=== PATIENT | female | born 1995 | race Caucasian/White ===

== ENCOUNTER 2017-05-24 10:20 | Emergency (ER) | payer OTHER, MEDICAID ==
[~2017-05-24] VITALS: Ht 167.6 cm; Wt 90.7 kg
[~2017-05-24 10:20] MED LIST: ACETAMINOPHEN-1 EAC1 PO; ACYCLOVIR 400400 MG PO; ADIPEX-P37.5 MG PO; ALBUTEROL2.5 MG/0.5; ALERTNESS AID200 MG PO; AMOXICILLIN 50500 M1; AMOXICILLIN500 M1 PO; AMOXICILLIN875 MG PO; BACTRIM DS TAB1 EACH PO; BIRTH CONTROL; CATAFLAM50 MG PO; CIPROFLOXACIN500 M1 PO; DIFLUCAN150 MG PO; HYDROCODON-ACE1 EAC7 PO; HYDROCODONE-AP1 EAC6 PO; IBUPROFEN 600600 M1 PO; IBUPROFEN 800800 M1 PO; IBUPROFEN 800800 MG PO; LIDOCAINE VISC100 M1 MM; MACROBID 100 M100 M1 PO; NAPROSYN500 MG PO; NOHOMEMEDICATIONS; NORCO 5-325 TA1 EACH PO; ORABASE11.9 GM MM; PENICILLIN V P500 MG PO; PENICILLIN VK250 MG PO; PENICILLIN VK500 M1 PO; PERCOCET 5-3251 EACH PO; PHENAZOPYRIDIN200 M2 PO; PRENATAL; PROPRANOLOL 1010 MG PO; PYRIDIUM200 MG PO; TAMIFLU45 MG PO; TRAMADOL 50 MG50 MG PO; TRINATE TABLET1 TAB; ULTRACET TABLE1 EACH PO; ULTRAM 50MG TAB50 MG PO; ZANTAC 150MG T150 M1; ZOFRAN ODT4 MG PO; ZOFRAN4 MG PO
[2017-05-24] MEDS ORDERED: MEDROLDOSEPACK PO (12:09)
[2017-05-24 12:23] VITALS: BP 118/72
== END 2017-05-24 12:23 | disposition home or self-care (01) ==
LOC: M.ERS 10:20
DX: M79.672 Pain in left foot (principal); J45.909 Unspecified asthma, uncomplicated; F41.9 Anxiety disorder, unspecified; F17.210 Nicotine dependence, cigarettes, uncomplicated; Z86.14 Personal history of Methicillin resistant Staphylococcus aureus infection; Z90.89 Acquired absence of other organs

== ENCOUNTER 2017-06-27 10:19 | Emergency (ER) | payer OTHER, MEDICAID ==
[~2017-06-27] VITALS: Ht 167.6 cm; Wt 99.8 kg
[~2017-06-27 10:19] MED LIST changes: +MEDROLDOSEPACK PO
[2017-06-27 10:30] VITALS: BP 128/72
[2017-06-27] MEDS ORDERED: TRAMADOL 50 MG50 MG PO (10:45)
[2017-06-27] MEDS ORDERED: NAPROSYN500 MG PO (10:45)
[2017-06-27] MEDS ORDERED: PENICILLIN V P500 MG PO (10:45)
== END 2017-06-27 10:50 | disposition home or self-care (01) ==
LOC: M.ERS 10:19
DX: K08.89 Other specified disorders of teeth and supporting structures (principal); J45.909 Unspecified asthma, uncomplicated; F17.210 Nicotine dependence, cigarettes, uncomplicated; Z86.14 Personal history of Methicillin resistant Staphylococcus aureus infection

== ENCOUNTER 2017-06-29 17:38 | Emergency (ER) | payer OTHER, MEDICAID ==
[~2017-06-29] VITALS: Ht 167.6 cm; Wt 113.4 kg
[2017-06-29] MEDS ORDERED: TRAMADOL 50 MG50 MG PO (17:50)
[2017-06-29 18:01] LABS: ABSOLUTE BASOPHILS 0.1 thou/uL (0.0-0.2); ABSOLUTE EOSINOPHILS 0.1 thou/uL (0.0-0.7); ABSOLUTE LYMPHOCYTES 2.4 thou/uL (0.8-5.3); ABSOLUTE MONOCYTES 0.4 thou/uL (0.0-1.2); ABSOLUTE NEUTROPHILS 2.9 thou/uL (1.6-8.1); BASOPHILS 1.3 %; EOSINOPHILS 1.3 %; HEMATOCRIT 43.4 % (37.0-47.0); HEMOGLOBIN 14.9 gm/dL (12.0-15.0); MCHC 34.3 g/dL (28.0-37.0); MCV 87.5 fL (80.0-100.0); MONOCYTES 6.3 %; MPV 7.7 fl. (7.2-11.1); NUCLEATED RBCS 0 /100WBC; PLATELET COUNT* 242 thou/uL (150-400); POLYS 50.1 %; RBC 4.96 mil/uL (4.20-5.00); RDW-CV 12.5 % (10.5-14.5); WBC 5.9 thou/uL (4.0-11.0)
[2017-06-29 18:09] LABS: CALCIUM 9.4 mg/dL (8.5-10.1); CREATININE 0.8 mg/dL (0.6-1.3); POTASSIUM 3.4 mmol/L (3.5-5.1)
[2017-06-29 18:10] LABS: APTT 29.2 Seconds (25.0-31.3); INR 1.1; PROTIME 10.8 Seconds (9.20-11.50)
[2017-06-29 18:13] LABS: ALBUMIN 4.2 g/dL (3.4-5.0); TOTAL BILIRUBIN 0.5 mg/dL (<0.1-1.0); TOTAL PROTEIN 7.2 g/dL (6.4-8.2)
[2017-06-29 18:14] LABS: ALCOHOL < 10 mg/dL (<10); SALICYLATE < 2.8 mg/dL (2.8-20.0)
[2017-06-29 18:15] LABS: ACETAMINOPHEN < 2 ug/mL (10-30)
[2017-06-29 18:27] LABS: URINE BILIRUBIN NEGATIVE (Negative); URINE BLOOD NEGATIVE (Negative); URINE CLARITY CLEAR; URINE COLOR YELLOW; URINE GLUCOSE-RANDOM NEGATIVE (Negative); URINE KETONES TRACE (Negative); URINE LEUKOCYTES-REFLEX NEGATIVE (Negative); URINE NITRITE-REFLEX NEGATIVE (Negative); URINE PROTEIN NEGATIVE (Negative); URINE UROBILINOGEN 0.2 E.U./dl (0.2-1.0)
[2017-06-29] MEDS ORDERED: XANAX 1 MG TABLE1 MG PO (18:32)
[2017-06-29 18:35] LABS: AMP/METHAMP Negative (Negative); BARBITURATES Negative (Negative); BENZODIAZEPINES Negative (Negative); COCAINE Negative (Negative); METHADONE Negative (Negative); OPIATES Negative (Negative); PCP Negative (Negative); THC Negative (Negative)
[2017-06-29 18:58] VITALS: BP 114/64
--- NOTE | 2017-06-30 14:37 | EKG ---
[place] [address] ELECTROCARDIOGRAM REPORT Name: KATIE TRIPLETT Room: [facility]#: [id number] Admission: 06/29/17 Attend Phys: Discharge: 06/29/17 Date of : [birth year] Report #: [id number] THIS REPORT FOR: //name// [facility] ED Test Date: 2017-06-29 Test Time: 18:32:37 Pat Name: KATIE TRIPLETT Department: Room: Gender: F Scheduling Assistant: CYNTHIA Liz : 1995 Requested By: Sixto Rivas Order Number: [id number] MD: Lebron Titus Measurements Intervals [place] Rate: 75 P: 50 [place]: 165 QRS: 43 QRSD: 96 T: 37 QT: 380 QTc: 425 Interpretive Statements Sinus rhythm Compared to ECG 11/06/2014 20:07:13 No significant changes Electronically Signed On 06-30-2017 14:36:59 CDT by Lebron Titus [email or web address] <ELECTRONICALLY SIGNED> By: Lebron Titus MD, [facility] 06/30/17 1436 1832 1832 Lebron Titus MD, FACC /EPI
== END 2017-06-29 19:02 | disposition home or self-care (01) ==
LOC: M.ERS 17:38
PROVIDERS: Family Medicine
DX: F41.0 Panic disorder [episodic paroxysmal anxiety] (principal); T40.4X1A Poisoning by other synthetic narcotics, accidental (unintentional), initial encounter; J45.909 Unspecified asthma, uncomplicated; F17.210 Nicotine dependence, cigarettes, uncomplicated; Z90.89 Acquired absence of other organs; Z86.14 Personal history of Methicillin resistant Staphylococcus aureus infection; Y92.89 Other specified places as the place of occurrence of the external cause

== ENCOUNTER 2017-08-02 21:02 | Emergency (ER) | payer OTHER, MEDICAID ==
[~2017-08-02] VITALS: Ht 167.6 cm; Wt 127.0 kg
[~2017-08-02 21:02] MED LIST changes: +XANAX 1 MG TABLE1 MG PO
[2017-08-02] MEDS ORDERED: HYDROXYZINE HCL25 M2 PO (21:10)
[2017-08-02 21:21] LABS: URINE BILIRUBIN NEGATIVE (Negative); URINE BLOOD 3+ (Negative); URINE CLARITY CLEAR; URINE COLOR YELLOW; URINE GLUCOSE-RANDOM NEGATIVE (Negative); URINE KETONES NEGATIVE (Negative); URINE LEUKOCYTES-REFLEX NEGATIVE (Negative); URINE NITRITE-REFLEX NEGATIVE (Negative); URINE PROTEIN NEGATIVE (Negative); URINE SPECIFIC GRAVITY <= 1.005 (1.005-1.030); URINE UROBILINOGEN 0.2 E.U./dl (0.2-1.0)
[2017-08-02 21:27] LABS: BACTERIA-REFLEX >30 Many /HPF (None Seen); CASTS None Seen /LPF (None Seen); CRYSTALS None Seen /LPF (None Seen); MUCUS 0-3 Light strn/LPF (None Seen); SQUAMOUS 0-3 Few /LPF (0-3); TRANSITIONAL EPITHEL CELL 0-3 Few /LPF (None Seen); URINE RBC 3-10 Few /HPF (0-2); URINE WBC-REFLEX 6-15 Few /HPF (0-5)
[2017-08-02 21:36] LABS: ABSOLUTE BASOPHILS 0.1 thou/uL (0.0-0.2); ABSOLUTE EOSINOPHILS 0.1 thou/uL (0.0-0.7); ABSOLUTE LYMPHOCYTES 2.1 thou/uL (0.8-5.3); ABSOLUTE MONOCYTES 0.6 thou/uL (0.0-1.2); ABSOLUTE NEUTROPHILS 4.9 thou/uL (1.6-8.1); BASOPHILS 0.9 %; EOSINOPHILS 1.6 %; HEMATOCRIT 40.7 % (37.0-47.0); HEMOGLOBIN 13.8 gm/dL (12.0-15.0); LYMPHOCYTES 27.3 %; MCH 30.1 pg (26.0-34.0); MCV 88.5 fL (80.0-100.0); MONOCYTES 8.2 %; MPV 7.8 fl. (7.2-11.1); NUCLEATED RBCS 0 /100WBC; PLATELET COUNT* 230 thou/uL (150-400); WBC 7.9 thou/uL (4.0-11.0)
[2017-08-02 21:42] LABS: ANION GAP 9 mmol/L (7-16); BUN 8 mg/dL (7-18); CALCIUM 8.6 mg/dL (8.5-10.1); CHLORIDE 108 mmol/L (98-107); CO2 24 mmol/L (21-32); CREATININE 0.8 mg/dL (0.6-1.3); GLUCOSE 102 mg/dL (70-99); POTASSIUM 3.5 mmol/L (3.5-5.1); SODIUM 141 mmol/L (136-145)
[2017-08-02 21:48] LABS: ALBUMIN 3.6 g/dL (3.4-5.0); ALKALINE PHOSPHATASE 64 U/L (46-116); LIPASE 93 U/L (73-393); SGOT 11 U/L (15-37); SGPT 19 U/L (30-65); TOTAL BILIRUBIN 0.3 mg/dL (<0.1-1.0); TOTAL PROTEIN 6.7 g/dL (6.4-8.2); TROPONIN-I LEVEL <0.06 ng/mL (<0.06)
[2017-08-02] MEDS ORDERED: BACTRIM DS TAB1 EACH PO (23:26)
[2017-08-02] MEDS ORDERED: BENTYL 20 MG TA20 M1 PO (23:26)
[2017-08-02] MEDS ORDERED: PHENERGAN 25 MG25 M1 PO (23:26)
[2017-08-02 23:40] VITALS: BP 130/80
--- NOTE | 2017-08-03 10:59 | EKG ---
[place] [address] ELECTROCARDIOGRAM REPORT Name: KATIE TRIPLETT [id number] Admission: 08/02/17 Attend Phys: Discharge: 08/02/17 Date of : [birth year] Report #: [id number] THIS REPORT FOR: //name// [facility] ED Test Date: 2017-08-02 Test Time: 21:22:56 Pat Name: KATIE TRIPLETT Department: Room: Gender: F Oil Deliverer: CYNTHIA Liz : 1995 Requested By: Senthil Barcenas Order Number: [id number] MD: Lawrence Soto Measurements Intervals [place] Rate: 83 P: 32 [place]: 161 QRS: 36 QRSD: 91 T: 29 QT: 349 QTc: 410 Interpretive Statements Sinus rhythm Compared to ECG 06/29/2017 18:32:37 No significant changes Electronically Signed On 08-03-2017 10:59:06 CDT by Lawrence Soto [email or web address] <ELECTRONICALLY SIGNED> By: Lawrence Soto MD, [facility] 08/03/17 1059 2122 21 Lawrence Soto MD, FACC /EPI
== END 2017-08-02 23:40 | disposition home or self-care (01) ==
LOC: M.ERS 21:02
PROVIDERS: Emergency Medicine Emergency Medical Services
DX: R19.7 Diarrhea, unspecified (principal); F41.9 Anxiety disorder, unspecified; J45.909 Unspecified asthma, uncomplicated; F17.210 Nicotine dependence, cigarettes, uncomplicated; Z86.14 Personal history of Methicillin resistant Staphylococcus aureus infection

== ENCOUNTER 2017-08-04 10:00 | Emergency (ER) | payer OTHER, MEDICAID ==
[~2017-08-04] VITALS: Ht 167.6 cm; Wt 127.0 kg
[~2017-08-04 10:00] MED LIST changes: +BENTYL 20 MG TA20 M1 PO; +HYDROXYZINE HCL25 M2 PO; +PHENERGAN 25 MG25 M1 PO
[2017-08-04 10:26] VITALS: BP 145/76
== END 2017-08-04 10:26 | disposition home or self-care (01) ==
LOC: M.ERS 10:00
DX: F41.0 Panic disorder [episodic paroxysmal anxiety] (principal); J45.909 Unspecified asthma, uncomplicated; F17.210 Nicotine dependence, cigarettes, uncomplicated; Z86.14 Personal history of Methicillin resistant Staphylococcus aureus infection

== ENCOUNTER 2017-08-09 23:51 | Emergency (ER) | payer OTHER, MEDICAID ==
[~2017-08-09] VITALS: Ht 167.6 cm; Wt 129.0 kg
[2017-08-10] MEDS ORDERED: ESCITALOPRAM OX20 MG PO (00:02)
[2017-08-10] MEDS ORDERED: BUSPIRONE HCL10 MG PO (00:02)
[2017-08-10 00:29] LABS: ABSOLUTE BASOPHILS 0.1 thou/uL (0.0-0.2); ABSOLUTE LYMPHOCYTES 2.3 thou/uL (0.8-5.3); ABSOLUTE MONOCYTES 0.7 thou/uL (0.0-1.2); ABSOLUTE NEUTROPHILS 6.7 thou/uL (1.6-8.1); BASOPHILS 1.3 %; EOSINOPHILS 0.4 %; HEMOGLOBIN 14.8 gm/dL (12.0-15.0); LYMPHOCYTES 23.7 %; MCHC 34.5 g/dL (28.0-37.0); MCV 87.2 fL (80.0-100.0); MONOCYTES 7.3 %; MPV 8.1 fl. (7.2-11.1); NUCLEATED RBCS 0 /100WBC; PLATELET COUNT* 258 thou/uL (150-400); POLYS 67.3 %; RBC 4.94 mil/uL (4.20-5.00); RDW-CV 12.9 % (10.5-14.5); WBC 9.9 thou/uL (4.0-11.0)
[2017-08-10 00:35] LABS: CALCIUM 8.7 mg/dL (8.5-10.1); CREATININE 0.7 mg/dL (0.6-1.3); POTASSIUM 3.5 mmol/L (3.5-5.1)
[2017-08-10 00:37] LABS: URINE BILIRUBIN NEGATIVE (Negative); URINE BLOOD NEGATIVE (Negative); URINE CLARITY CLEAR; URINE COLOR YELLOW; URINE GLUCOSE-RANDOM NEGATIVE (Negative); URINE KETONES NEGATIVE (Negative); URINE LEUKOCYTES-REFLEX NEGATIVE (Negative); URINE NITRITE-REFLEX NEGATIVE (Negative); URINE PROTEIN NEGATIVE (Negative); URINE SPECIFIC GRAVITY 1.025 (1.005-1.030); URINE UROBILINOGEN 0.2 E.U./dl (0.2-1.0)
[2017-08-10 00:40] LABS: ALBUMIN 3.9 g/dL (3.4-5.0); TOTAL BILIRUBIN 0.3 mg/dL (<0.1-1.0)
[2017-08-10 00:44] LABS: AMP/METHAMP Negative (Negative); BARBITURATES Negative (Negative); BENZODIAZEPINES POSITIVE (Negative); COCAINE Negative (Negative); METHADONE Negative (Negative); OPIATES Negative (Negative); PCP Negative (Negative); THC Negative (Negative)
[2017-08-10 01:00] VITALS: BP 104/59
== END 2017-08-10 01:02 | disposition home or self-care (01) ==
LOC: M.ERS 23:51
PROVIDERS: Nurse Practitioner Family
DX: F41.0 Panic disorder [episodic paroxysmal anxiety] (principal); J45.909 Unspecified asthma, uncomplicated; F17.210 Nicotine dependence, cigarettes, uncomplicated; Z86.14 Personal history of Methicillin resistant Staphylococcus aureus infection; Z90.89 Acquired absence of other organs

== ENCOUNTER 2017-10-15 12:14 | Emergency (ER) | payer OTHER ==
[~2017-10-15] VITALS: Ht 167.6 cm; Wt 122.5 kg
[~2017-10-15 12:14] MED LIST changes: +BUSPIRONE HCL10 MG PO; +ESCITALOPRAM OX20 MG PO
[2017-10-15 12:21] VITALS: BP 91/67
[2017-10-15] MEDS ORDERED: XANAX 0.5 MG0.5 MG PO (12:24)
[2017-10-15] MEDS ORDERED: IBU600 MG PO (13:06)
== END 2017-10-15 13:15 | disposition home or self-care (01) ==
LOC: M.ERS 12:14
DX: S86.811A Strain of other muscle(s) and tendon(s) at lower leg level, right leg, initial encounter (principal); J45.909 Unspecified asthma, uncomplicated; F41.9 Anxiety disorder, unspecified; F17.210 Nicotine dependence, cigarettes, uncomplicated; Z86.14 Personal history of Methicillin resistant Staphylococcus aureus infection; X58.XXXA Exposure to other specified factors, initial encounter; Y93.89 Activity, other specified; Y92.89 Other specified places as the place of occurrence of the external cause; Y99.8 Other external cause status

== ENCOUNTER 2018-07-09 13:09 | Emergency (ER) | payer OTHER ==
[~2018-07-09] VITALS: Ht 167.6 cm; Wt 90.7 kg
[~2018-07-09 13:09] MED LIST changes: +IBU600 MG PO; +XANAX 0.5 MG0.5 MG PO
[2018-07-09] MEDS ORDERED: BIRTH CONTROL (13:22)
[2018-07-09] MEDS ORDERED: AMOXICILLIN 50500 MG PO (13:45)
[2018-07-09] MEDS ORDERED: IBUPROFEN 800800 M1 PO (13:45)
[2018-07-09 13:52] VITALS: BP 147/78
== END 2018-07-09 13:52 | disposition home or self-care (01) ==
LOC: M.ERS 13:09
DX: K02.9 Dental caries, unspecified (principal); K12.2 Cellulitis and abscess of mouth; J45.909 Unspecified asthma, uncomplicated; F41.9 Anxiety disorder, unspecified; F17.210 Nicotine dependence, cigarettes, uncomplicated

== ENCOUNTER 2018-09-13 13:21 | Emergency (ER) | payer OTHER ==
[~2018-09-13] VITALS: Ht 170.2 cm; Wt 81.7 kg
[~2018-09-13 13:21] MED LIST changes: +AMOXICILLIN 50500 MG PO
[2018-09-13 13:48] LABS: URINE BILIRUBIN NEGATIVE (Negative); URINE BLOOD NEGATIVE (Negative); URINE CLARITY CLEAR; URINE COLOR YELLOW; URINE GLUCOSE-RANDOM NEGATIVE (Negative); URINE KETONES NEGATIVE (Negative); URINE LEUKOCYTES-REFLEX NEGATIVE (Negative); URINE NITRITE-REFLEX NEGATIVE (Negative); URINE PROTEIN NEGATIVE (Negative); URINE UROBILINOGEN 0.2 E.U./dl (0.2-1.0)
[2018-09-13 14:11] LABS: AMP/METHAMP Negative (Negative); BARBITURATES Negative (Negative); BENZODIAZEPINES Negative (Negative); COCAINE Negative (Negative); METHADONE Negative (Negative); OPIATES Negative (Negative); PCP Negative (Negative); THC Negative (Negative)
[2018-09-13 14:22] LABS: ABSOLUTE BASOPHILS 0.1 thou/uL (0.0-0.2); ABSOLUTE EOSINOPHILS 0.1 thou/uL (0.0-0.7); ABSOLUTE LYMPHOCYTES 2.1 thou/uL (0.8-5.3); ABSOLUTE MONOCYTES 0.6 thou/uL (0.0-1.2); ABSOLUTE NEUTROPHILS 5.9 thou/uL (1.6-8.1); BASOPHILS 0.7 %; EOSINOPHILS 0.7 %; HEMATOCRIT 42.9 % (37.0-47.0); HEMOGLOBIN 14.6 gm/dL (12.0-15.0); LYMPHOCYTES 24.4 %; MCV 88.3 fL (80.0-100.0); MONOCYTES 6.7 %; NUCLEATED RBCS 0 /100WBC; PLATELET COUNT* 223 thou/uL (150-400); POLYS 67.5 %; RBC 4.86 mil/uL (4.20-5.00); WBC 8.8 thou/uL (4.0-11.0)
[2018-09-13 14:37] LABS: CALCIUM 8.4 mg/dL (8.5-10.1); CREATININE 0.6 mg/dL (0.6-1.3); POTASSIUM 4.1 mmol/L (3.5-5.1)
[2018-09-13 14:41] LABS: TOTAL BILIRUBIN 0.2 mg/dL (<0.1-1.0); TOTAL PROTEIN 6.3 g/dL (6.4-8.2)
[2018-09-13] MEDS ORDERED: ONDANSETRON HCL4 M2 PO (15:44)
[2018-09-13 16:08] VITALS: BP 120/70
== END 2018-09-13 16:10 | disposition home or self-care (01) ==
LOC: M.ERS 13:21
PROVIDERS: Nurse Practitioner Family
DX: R11.2 Nausea with vomiting, unspecified (principal); F17.210 Nicotine dependence, cigarettes, uncomplicated; F41.9 Anxiety disorder, unspecified; J45.909 Unspecified asthma, uncomplicated

== ENCOUNTER 2018-09-26 12:30 | Emergency (ER) | payer OTHER ==
[~2018-09-26] VITALS: Ht 167.6 cm; Wt 113.4 kg
[~2018-09-26 12:30] MED LIST changes: +ONDANSETRON HCL4 M2 PO
[2018-09-26 13:03] LABS: URINE BILIRUBIN NEGATIVE (Negative); URINE BLOOD NEGATIVE (Negative); URINE CLARITY CLEAR; URINE COLOR DARK YELLOW; URINE GLUCOSE-RANDOM NEGATIVE (Negative); URINE KETONES NEGATIVE (Negative); URINE LEUKOCYTES-REFLEX NEGATIVE (Negative); URINE NITRITE-REFLEX NEGATIVE (Negative); URINE PROTEIN NEGATIVE (Negative); URINE SPECIFIC GRAVITY >= 1.030 (1.005-1.030); URINE UROBILINOGEN 0.2 E.U./dl (0.2-1.0)
[2018-09-26 14:16] LABS: ABSOLUTE BASOPHILS 0.1 thou/uL (0.0-0.2); ABSOLUTE EOSINOPHILS 0.1 thou/uL (0.0-0.7); ABSOLUTE LYMPHOCYTES 1.8 thou/uL (0.8-5.3); ABSOLUTE MONOCYTES 0.4 thou/uL (0.0-1.2); ABSOLUTE NEUTROPHILS 4.7 thou/uL (1.6-8.1); BASOPHILS 0.7 %; EOSINOPHILS 0.9 %; HEMATOCRIT 39.8 % (37.0-47.0); HEMOGLOBIN 13.3 gm/dL (12.0-15.0); LYMPHOCYTES 25.2 %; MCH 29.6 pg (26.0-34.0); MCHC 33.6 g/dL (28.0-37.0); MCV 88.3 fL (80.0-100.0); MONOCYTES 6.1 %; MPV 7.6 fl. (7.2-11.1); NUCLEATED RBCS 0 /100WBC; PLATELET COUNT* 243 thou/uL (150-400); POLYS 67.1 %; RBC 4.51 mil/uL (4.20-5.00); RDW-CV 13.2 % (10.5-14.5); WBC 7.1 thou/uL (4.0-11.0)
[2018-09-26 14:22] LABS: CALCIUM 8.4 mg/dL (8.5-10.1); CREATININE 0.6 mg/dL (0.6-1.3); POTASSIUM 3.8 mmol/L (3.5-5.1)
[2018-09-26] MEDS ORDERED: PENICILLIN V P500 MG PO (14:47)
[2018-09-26] MEDS ORDERED: TRINATE TABLET1 EACH PO (14:50)
[2018-09-26 15:07] VITALS: BP 110/78
== END 2018-09-26 15:08 | disposition home or self-care (01) ==
LOC: M.ERS 12:30
PROVIDERS: Nurse Practitioner Family
DX: Z32.01 Encounter for pregnancy test, result positive (principal); K04.7 Periapical abscess without sinus; J45.909 Unspecified asthma, uncomplicated; F41.9 Anxiety disorder, unspecified; F17.210 Nicotine dependence, cigarettes, uncomplicated

== ENCOUNTER 2018-10-21 07:53 | Emergency (ER) | payer OTHER, MEDICAID | END 2018-10-21 10:45 | disposition home or self-care (01) | LOC: M.ERS 07:53 | DX: O20.0 Threatened abortion (principal); F41.9 Anxiety disorder, unspecified; F17.210 Nicotine dependence, cigarettes, uncomplicated; J45.909 Unspecified asthma, uncomplicated; Z86.14 Personal history of Methicillin resistant Staphylococcus aureus infection; Z3A.01 Less than 8 weeks gestation of pregnancy ==

== ENCOUNTER 2019-01-04 21:08 | Emergency (ER) | payer OTHER, MEDICAID ==
[~2019-01-04] VITALS: Ht 167.6 cm; Wt 81.7 kg
[~2019-01-04 21:08] MED LIST changes: +TRINATE TABLET1 EACH PO
[2019-01-04 21:29] LABS: URINE BILIRUBIN NEGATIVE (Negative); URINE BLOOD NEGATIVE (Negative); URINE CLARITY CLEAR; URINE COLOR YELLOW; URINE GLUCOSE-RANDOM NEGATIVE (Negative); URINE KETONES NEGATIVE (Negative); URINE LEUKOCYTES-REFLEX NEGATIVE (Negative); URINE NITRITE-REFLEX NEGATIVE (Negative); URINE PROTEIN NEGATIVE (Negative); URINE SPECIFIC GRAVITY 1.015 (1.005-1.030); URINE UROBILINOGEN 0.2 E.U./dl (0.2-1.0)
[2019-01-04 21:53] LABS: ABSOLUTE EOSINOPHILS 0.1 thou/uL (0.0-0.7); ABSOLUTE LYMPHOCYTES 2.7 thou/uL (0.8-5.3); ABSOLUTE MONOCYTES 0.6 thou/uL (0.0-1.2); ABSOLUTE NEUTROPHILS 4.4 thou/uL (1.6-8.1); BASOPHILS 0.4 %; EOSINOPHILS 1.3 %; HEMATOCRIT 37.4 % (37.0-47.0); HEMOGLOBIN 12.8 gm/dL (12.0-15.0); LYMPHOCYTES 34.7 %; MCH 29.6 pg (26.0-34.0); MCHC 34.2 g/dL (28.0-37.0); MCV 86.6 fL (80.0-100.0); MONOCYTES 7.9 %; MPV 7.8 fl. (7.2-11.1); NUCLEATED RBCS 0 /100WBC; PLATELET COUNT* 253 thou/uL (150-400); POLYS 55.7 %; RBC 4.32 mil/uL (4.20-5.00); RDW-CV 13.7 % (10.5-14.5); WBC 7.9 thou/uL (4.0-11.0)
[2019-01-04 21:59] LABS: CALCIUM 8.5 mg/dL (8.5-10.1); CREATININE 0.6 mg/dL (0.6-1.3); POTASSIUM 3.7 mmol/L (3.5-5.1)
[2019-01-04 22:03] LABS: ALBUMIN 3.1 g/dL (3.4-5.0); TOTAL BILIRUBIN 0.1 mg/dL (<0.1-1.0); TOTAL PROTEIN 6.4 g/dL (6.4-8.2)
[2019-01-04 22:47] VITALS: BP 145/72
== END 2019-01-04 22:48 | disposition home or self-care (01) ==
LOC: M.ERS 21:08
PROVIDERS: Family Medicine
DX: O26.891 Other specified pregnancy related conditions, first trimester (principal); R10.9 Unspecified abdominal pain; J45.909 Unspecified asthma, uncomplicated; F17.210 Nicotine dependence, cigarettes, uncomplicated; F41.9 Anxiety disorder, unspecified; Z90.89 Acquired absence of other organs; Z86.14 Personal history of Methicillin resistant Staphylococcus aureus infection; Z3A.01 Less than 8 weeks gestation of pregnancy

== ENCOUNTER 2019-01-15 13:23 | Emergency (ER) | payer OTHER, MEDICAID ==
[~2019-01-15] VITALS: Ht 167.6 cm; Wt 113.4 kg
[2019-01-15 13:33] VITALS: BP 139/74
[2019-01-15] MEDS ORDERED: AMOXICILLIN 50500 MG PO (13:42)
== END 2019-01-15 13:57 | disposition home or self-care (01) ==
LOC: M.ERS 13:23
DX: O99.511 Diseases of the respiratory system complicating pregnancy, first trimester (principal); O99.331 Smoking (tobacco) complicating pregnancy, first trimester; O99.341 Other mental disorders complicating pregnancy, first trimester; Z3A.01 Less than 8 weeks gestation of pregnancy

== ENCOUNTER 2019-01-26 06:52 | Emergency (ER) | payer OTHER, MEDICAID ==
[~2019-01-26] VITALS: Ht 167.6 cm; Wt 127.0 kg
[2019-01-26 07:57] LABS: HEMATOCRIT 37.6 % (37.0-47.0); MCH 29.7 pg (26.0-34.0); MCHC 34.6 g/dL (28.0-37.0); MCV 85.8 fL (80.0-100.0); MPV 7.4 fl. (7.2-11.1); RBC 4.38 mil/uL (4.20-5.00); RDW-CV 14.1 % (10.5-14.5); WBC 6.5 thou/uL (4.0-11.0)
[2019-01-26 08:07] LABS: URINE BILIRUBIN NEGATIVE (Negative); URINE BLOOD 3+ (Negative); URINE CLARITY CLEAR; URINE COLOR YELLOW; URINE GLUCOSE-RANDOM NEGATIVE (Negative); URINE KETONES NEGATIVE (Negative); URINE LEUKOCYTES-REFLEX NEGATIVE (Negative); URINE NITRITE-REFLEX NEGATIVE (Negative); URINE PROTEIN NEGATIVE (Negative); URINE SPECIFIC GRAVITY >= 1.030 (1.005-1.030); URINE UROBILINOGEN 0.2 E.U./dl (0.2-1.0)
[2019-01-26 08:08] LABS: CALCIUM 8.7 mg/dL (8.5-10.1); CREATININE 0.5 mg/dL (0.6-1.3); POTASSIUM 3.5 mmol/L (3.5-5.1)
[2019-01-26 08:12] LABS: BACTERIA-REFLEX 1-9 Few /HPF (None Seen); CASTS None Seen /LPF (None Seen); CRYSTALS None Seen /LPF (None Seen); MUCUS 4-6 Moderate strn/LPF (None Seen); SQUAMOUS 4-10 Moderate /LPF (0-3); URINE RBC 3-10 Few /HPF (0-2); URINE WBC-REFLEX 0-5 Rare /HPF (0-5)
[2019-01-26 08:17] LABS: TOTAL BILIRUBIN 0.4 mg/dL (<0.1-1.0); TOTAL PROTEIN 6.2 g/dL (6.4-8.2)
[2019-01-26] MEDS ORDERED: KEFLEX500 M1 PO (09:49)
[2019-01-26 10:03] VITALS: BP 101/51
== END 2019-01-26 10:03 | disposition home or self-care (01) ==
LOC: M.ERS 06:52
PROVIDERS: Emergency Medicine Emergency Medical Services
DX: O20.0 Threatened abortion (principal); O99.341 Other mental disorders complicating pregnancy, first trimester; O99.331 Smoking (tobacco) complicating pregnancy, first trimester; O99.511 Diseases of the respiratory system complicating pregnancy, first trimester; Z86.14 Personal history of Methicillin resistant Staphylococcus aureus infection; Z3A.08 8 weeks gestation of pregnancy

== ENCOUNTER → 2019-11-10 | Outpatient (CLI) | payer OTHER, MEDICAID ==
[~2019-11-10] MED LIST changes: +KEFLEX500 M1 PO; +PEPCID20 MG PO
== END ==
LOC: M.LAB 09:19
PROVIDERS: ATTEND Internal Medicine Gastroenterology
DX: Z01.812 Encounter for preprocedural laboratory examination (principal); Z11.59 Encounter for screening for other viral diseases; K83.9 Disease of biliary tract, unspecified

== ENCOUNTER → 2019-11-14 | Day surgery (SDC) | payer OTHER, MEDICAID ==
[2019-11-14 09:23] LABS: ABSOLUTE EOSINOPHILS 0.1 thou/uL (0.0-0.7); ABSOLUTE LYMPHOCYTES 1.8 thou/uL (0.8-5.3); ABSOLUTE MONOCYTES 0.4 thou/uL (0.0-1.2); ABSOLUTE NEUTROPHILS 2.5 thou/uL (1.6-8.1); EOSINOPHILS 2.2 %; HEMATOCRIT 41.5 % (37.0-47.0); HEMOGLOBIN 13.9 gm/dL (12.0-15.0); LYMPHOCYTES 36.7 %; MCH 29.3 pg (26.0-34.0); MCHC 33.5 g/dL (28.0-37.0); MCV 87.4 fL (80.0-100.0); MONOCYTES 7.4 %; MPV 8.2 fl. (7.2-11.1); NUCLEATED RBCS 0 /100WBC; PLATELET COUNT* 223 thou/uL (150-400); POLYS 52.7 %; RBC 4.75 mil/uL (4.20-5.00); WBC 4.8 thou/uL (4.0-11.0)
[2019-11-14 09:39] LABS: CALCIUM 8.6 mg/dL (8.5-10.1); CREATININE 0.7 mg/dL (0.6-1.3)
[2019-11-14 09:40] LABS: ALBUMIN 3.6 g/dL (3.4-5.0); TOTAL BILIRUBIN 0.6 mg/dL (<0.1-1.0); TOTAL PROTEIN 6.7 g/dL (6.4-8.2)
== END | disposition home or self-care (01) ==
LOC: M.SUR 08:58
PROVIDERS: ATTEND Internal Medicine Gastroenterology
DX: Z46.59 Encounter for fitting and adjustment of other gastrointestinal appliance and device (principal); K83.8 Other specified diseases of biliary tract; F41.9 Anxiety disorder, unspecified; Z96.89 Presence of other specified functional implants; Z87.440 Personal history of urinary (tract) infections; Z79.899 Other long term (current) drug therapy; Z98.890 Other specified postprocedural states